=== PATIENT | male | born 1935 | race Caucasian/White ===

== ENCOUNTER → 2017-10-13 | Outpatient (CLI) | payer MEDICARE, OTHER ==
[2016-04-18 15:36] VITALS: BMI 25.2
[~2017-10-13] MED LIST: ACET-1966 PO; ASCO-182 PO; ASPI-1471 PO; ASPI-757 PO; BENZ100C4 PO; CALC625T57 PO; CEF300 PO; CHOL10005 PO; CHOL400C PO; CLON-298 PO; CYAN500T54 PO; DOCU-416 PO; FLUT9.9S; LACT PO; LEVO-85 PO; MAGN250T34 PO; MECO10002; MULT1CAP59 PO; OMEP-137 PO; POTA-53 PO; POTA2TAB29 PO; [UNRECOGNIZED DRUG - CODE] PO
--- NOTE | 2017-10-13 10:16 | RADIOLOGY IMAGING REPORT ---
[place] [facility] [place] Marco Awad : 1935 MR: [id number] V: [id number] EXAM DATE: ORDERING PHYSICIAN: [facility] TECHNOLOGIST: Location: [facility] Patient: Marco Awad : 1935 Visit/Account:[id number] Date of Sevice: 10/13/2017 Exam type: CHEST PA AND LAT History: Follow-up right upper lobe nodular infiltrate Comparison: CT chest January 06, 2017 Findings: There are subtle vague groundglass opacities projecting over the right upper lung field. These may r epresent the opacities seen on the prior CT scan although are better depicted by that imaging modalit y. There is no evidence of pleural effusions or pulmonary edema. The cardiac silhouette is normal i n size. There are surgical clips in the right axilla IMPRESSION: 1. Vague groundglass opacities project over the right upper lung field which may represent the passa ge is identified on the prior CT. These were more accurately depicted on the prior CT scan and follo w-up chest CT may be helpful for further evaluation Report Dictated By: Sayda Jones MD at 10/13/2017 10:08 AM Report E-Signed By: Sayda Jones MD at 10/13/2017 10:12 AM WSN:[id number]
== END ==
LOC: RAD 09:16
PROVIDERS: ATTEND Internal Medicine
DX: R91.8 Other nonspecific abnormal finding of lung field (principal)
CPT/HCPCS: 71046

== ENCOUNTER 2018-02-06 02:47 | Outpatient (RCR) | payer MEDICARE, OTHER ==
[2016-04-18 15:36] VITALS: BMI 25.2
[2018-02-06] MEDS ORDERED: IOPAMIDOL 76% 75 ML INFUS BTL 75 ML ONE (10:14)
[2018-02-06] MEDS ORDERED: NS 0.9% 150 ML BAG 150 ML ONE (10:15)
--- NOTE | 2018-02-06 11:00 | RADIOLOGY IMAGING REPORT ---
FACILITY: [facility] [place] PATIENT NAME: Marco Awad : 1935 MR: [id number] V: [id number] EXAM DATE: ORDERING PHYSICIAN: HORACIO GERMAN TECHNOLOGIST: [place] [facility] [place] Marco Awad : 1935 Visit/Account:[id number] Date of Sevice: 02/06/2018 CHEST/AB/PELV W/CONTRAST HISTORY: Screening exam, history of melanoma. TECHNIQUE: CT thoracic inlet to the pubic symphysis was obtained with IV contrast.. One of the following dose optimization techniques was utilized in the performance of this exam: autom ated exposure control; adjustment of the mA and/or kV according to the patient's size; or use of an i terative reconstruction technique. Specific details can be referenced in the facility's radiology CT exam operational policy. CONTRAST: 75 cc Isovue-370 IV. COMPARISON: CT chest 01/06/2017. FINDINGS: CHEST: Lungs/pleura: The lungs are clear. Mediastinum: Negative. Bones/soft tissues: There are surgical clips in the right axilla. Left axilla is normal. ABDOMEN/PELVIS: Liver/gallbladder: The liver demonstrates homogeneous enhancement without evidence of mass. The gal lbladder is normal. Spleen: Normal. Adrenals: Normal. Pancreas: Normal enhancement without evidence of mass. Kidneys/: Both kidneys demonstrate normal enhancement without evidence of hydronephrosis or mass. The urinary bladder is normal. Pelvis/Bladder: Urinary bladder is normal. GI: There are diverticular changes I sigmoid colon. The small bowel and stomach are normal. Vessels/nodes: Negative. Bones/soft tissues: There are no lytic or blastic bone lesions. IMPRESSION: 1. No evidence of metastasis in the chest abdomen or pelvis. 2. Postoperative changes with surgical clips in the right axilla. Report Dictated By: Slade Noble at 02/06/2018 10:51 AM Report E-Signed By: Slade Noble at 02/06/2018 10:56 AM WSN:[id number]
[2018-02-10] MEDS ORDERED: GADOBENATE 529MG/1ML 15ML VIAL IVP ONE (11:00)
--- NOTE | 2018-02-10 13:25 | RADIOLOGY IMAGING REPORT ---
FACILITY: [facility] - [place] PATIENT NAME: Marco Awad : 1935 MR: [id number] V: [id number] EXAM DATE: ORDERING PHYSICIAN: HORACIO GERMAN TECHNOLOGIST: Location: [facility] Patient: Marco Awad : 1935 Visit/Account:[id number] Date of Sevice: 02/10/2018 BRAIN W W/O CONTRAST Provided history: Melanoma, pituitary adenoma Additional pertinent history: none TECHNIQUE: Multiplanar multisequence brain MRI was performed without and with intravenous contrast Contrast dose: 15 mL of MultiHance. Additional focused sequences: none COMPARISON STUDIES: No relevant priors FINDINGS: Brain volume: There is prominence of the ventricles, sulci and fissures that is appropriate for age. Acute ischemia: None Chronic cortical and ganglionic ischemia: none significant Hemorrhage: None Masses / edema: There are no intra-axial masses to suggest metastatic disease. Correlating with the history given, there is enlargement of the pituitary. Detailed assessment was n ot performed. Based upon the screening study, maximal height is 9 mm and transverse diameter 20 mm i n AP diameter 11 mm. On the pregadolinium T1 series, the mass is isointense to jauregui matter, typicall y seen from pituitary adenoma. It demonstrates mildly heterogenous enhancement. The stalk appears t o displace posteriorly, difficult to define on the coronal series. No obvious cavernous sinus invasi on though it is encroaching upon the right cavernous sinus. There is visible CSF between the upper m argin of the mass and the chiasm. There is no growth through the floor of the sella. White matter lesions : Normal Vessels: Normal Extra-axial: None Calvarium / scalp: Negative Skull base / infratemporal fossa: negative Visualized sinuses / orbits / upper neck: Moderate smooth mucosal thickening right maxillary sinus a nd mild thickening of the ethmoid air cells bilaterally. IMPRESSION: 1. No evidence of intra-axial mass, hemorrhage or acute ischemia. 2. Pituitary enlargement, correlating with history given. Please note that a detailed study was not performed on the pituitary. The signal pattern would be consistent with an adenoma. 3. Mild right maxillary sinus inflammatory disease. Report Dictated By: Gabriel Covarrubias MD at 02/10/2018 1:13 PM Report E-Signed By: aGbriel Covarrubias MD at 02/10/2018 1:20 PM WSN:[id number]
== END 2018-02-10 18:00 | disposition home or self-care (01) ==
LOC: CT 02:47 → EDSTATUS 02:47 → CT 02-10 18:00
PROVIDERS: ATTEND Internal Medicine Medical Oncology
DX: C43.9 Malignant melanoma of skin, unspecified (principal); D35.2 Benign neoplasm of pituitary gland
CPT/HCPCS: 36415; 70553; 71260; 74177; 82565; A9577; Q9967

== ENCOUNTER 2018-06-08 01:33 | Inpatient (IN) | payer MEDICARE, OTHER ==
[~2018-06-08] VITALS: Ht 172.7 cm; Wt 76.7 kg
[~2018-06-08 01:33] MED LIST changes: -CLON-298 PO; +CLON-331 PO
[2018-06-08] MEDS ORDERED: LR IV ONE (01:45)
[2018-06-08] MEDS ORDERED: RANI-366 PO (01:54)
--- NOTE | 2018-06-08 02:01 | EKG ---
FACILITY: [facility] - [place] PATIENT NAME: ROSITA SHETTY : [id number] MR: [id number] V: [id number] EXAM DATE: ORDERING PHYSICIAN: SANIYA TRINIDAD TECHNOLOGIST: HÉCTOR Test Reason : SOB Blood Pressure : / mmHG Vent. Rate : 108 BPM Atrial Rate : 108 BPM P-R Int : 188 ms QRS Dur : 068 ms QT Int : 306 ms P-R-T Axes : 057 020 045 degrees QTc Int : 410 ms Sinus tachycardia Nonspecific ST and T wave abnormality Abnormal ECG When compared with ECG of 18-APR-2016 03:47, Previous ECG has much artifact, making comparison difficult Confirmed by DEUCE LEHMAN ([id number]) on 06/08/2018 3:30:42 AM Referred By: IVVI Confirmed By:DEUCE LEHMAN
[2018-06-08 02:11] LABS: PLATELET COUNT, AUTOMATED 196 K/uL (150-450)
[2018-06-08 02:16] LABS: INR 1.02
--- NOTE | 2018-06-08 02:16 | ER Report ---
History and Physical Time Seen By MD: 01:40 Hx. of Stated Complaint: Patient states he aspirated on acid reflux at 2300 tonight, also complains of persistent shivering. states that this has happened before in the past with similar symptoms HPI/ROS CHIEF COMPLAINT: cough, aspiration, shivering HISTORY OF PRESENT ILLNESS: Pt reportedly aspirated due to reflux at 11pm; shortly after, he began coughing and developed shirvering. Cough has been nonproductive. Patient now has uncontrollable shivering and chills. States he has had this previously; last over 1 year ago. Pt denies n/v/d/c/chest pain. REVIEW OF SYSTEMS: Constitutional: chills as above Eyes: No discharge. ENT: No sore throat. Cardiovascular: No chest pain, no palpitations. Respiratory: cough, non productive Gastrointestinal: No abdominal pain, no vomiting. Genitourinary: No hematuria. Musculoskeletal: No back pain. Skin: No rashes. Neurological: No headache. Remainder of the 14 system rev: Yes Allergies: Coded Allergies: No Known Drug Allergies (Unverified , 06/08/18) Home Meds Active Scripts Lactobacillus Acidophilus (ACIDOPHILUS CAPLET) 1 Each Tab, 1 EACH PO BIDBS, #0 TAB continue for one week after stopping the antibiotic Prov:DEUCE LEHMAN MD 04/20/16 Clonazepam (CLONAZEPAM) 0.5 Mg Tablet, 1 TAB PO QHS PRN for insomnia, #0 TAB 1 Refill Prov:DEUCE LEHMAN MD 04/20/16 Omeprazole (OMEPRAZOLE) 20 Mg Tablet.dr, 1 TAB PO BID, #180 TAB 3 Refills TAKE ONE TABLET BY MOUTH TWICE A DAY Prov:DIANE PONCE MD 09/28/14 Reported Medications Ranitidine Hcl (ZANTAC) 150 Mg Tablet, 75 MG PO HS, TAB 06/08/18 Cyanocobalamin (Vitamin B-12) (B-12) 500 Mcg Tablet, 500 MCG PO QPM, TAB 04/18/16 Acetaminophen (TYLENOL) 325 Mg Tablet, 650 MG PO PRN, TAB 04/18/16 Aspirin (ASPIRIN) 325 Mg Tablet, 325 MG PO QAM, TAB 04/18/16 Magnesium Oxide (MAGNESIUM) 250 Mg Tablet, 250 MG PO QPM 04/18/16 Docusate Sodium (COLACE) 100 Mg Capsule, PO QPM, CAPSULE 04/18/16 Calcium Polycarbophil (FIBERCON) 625 Mg Tablet, PO QAM 04/18/16 Potassium Gluconate (POTASSIUM GLUCONATE) 500 Mg Tablet, 1 TAB PO QHS 04/18/16 Ascorbic Acid (VITAMIN C) 500 Mg Tablet, 500 MG PO QAM, TAB 04/18/16 Multivitamin (MULTIVITAMINS) 1 Each Capsule, 1 EACH PO DAILY, CAPSULE 09/27/14 Discontinued Reported Medications Cholecalciferol (Vitamin D3) (VITAMIN D3) 400 Unit Capsule, 400 UNIT PO QPM, CAPSULE 04/18/16 Discontinued Scripts Cefdinir 300 Mg Cap (OMNICEF 300 MG CAP (OR EQUIV)) 300 Mg Capsule, 300 MG PO BID, #16 CAPSULE Start in the morning of 04/21 Prov:DEUCE LEHMAN MD 04/20/16 Reviewed Nurses Notes: Yes Old Medical Records Reviewed: Yes Hx Smoking: Yes Smoking Status: Former Smoker Exposure to Second Hand Smoke?: No Hx Substance Use Disorder: No Hx Alcohol Use: Yes (1 DAILY) Constitutional Vital Sign - Last 24 Hours 06/08/18 06/08/18 06/08/18 06/08/18 01:35 01:37 01:37 01:48 Temp 98.1 Pulse 122 107 Resp 23 24 B/P (MAP) 150/100 150/100 (117) Pulse Ox 84 93 O2 Delivery Nasal Cannula O2 Flow Rate 4.5 06/08/18 06/08/18 06/08/18 06/08/18 02:03 02:13 02:18 02:23 Pulse 107 113 105 Resp 16 29 13 B/P (MAP) 125/80 (95) Pulse Ox 95 93 92 06/08/18 06/08/18 06/08/18 06/08/18 02:53 03:03 03:08 03:13 Pulse 114 110 112 114 Resp 16 23 20 18 Pulse Ox 91 90 92 06/08/18 06/08/18 03:15 03:23 Pulse 108 Resp 16 B/P (MAP) 101/65 (77) Pulse Ox 92 Physical Exam General Appearance: [The patient is alert, has no immediate need for airway protection and no signs of toxicity.] He is shivering uncontrollably Pupils equal and round no pallor or injection. ENT, Mouth: MM dry Respiratory: occ basilar ronchi R > L Cardiovascular: tachycardia Gastrointestinal: Abdomen is soft and non tender, no masses, bowel sounds yolette l. Neurological: alert, oriented, no focal deficits Skin: skin cool, no rashes, dry Musculoskeletal: Neck is supple non tender. Extremities are nontender, nonswollen and have full range of motion. DIFFERENTIAL DIAGNOSIS: After history and physical exam differential diagnosis was considered for sepsis, aspiration pneumonia, acs, or other emergent etiology Medical Decision Making Data Points Result Diagram: 06/08/18 0150 06/08/18 0150 Laboratory Hematology Test 06/08/18 01:50 06/08/18 02:28 Red Blood Count 4.18 M/uL (4.00-5.60) Mean Corpuscular Volume 101.4 fL (80.0-96.0) Mean Corpuscular Hemoglobin 34.9 pg (26.0-33.0) Mean Corpuscular Hemoglobin Concent 34.4 g/dL (32.0-36.0) Red Cell Distribution Width 13.8 % (11.5-14.5) Mean Platelet Volume 7.0 fL (7.2-11.1) Neutrophils (%) (Auto) 57.2 % (39.4-72.5) Lymphocytes (%) (Auto) 29.0 % (17.6-49.6) Monocytes (%) (Auto) 8.2 % (4.1-12.4) Eosinophils (%) (Auto) 5.3 % (0.4-6.7) Basophils (%) (Auto) 0.3 % (0.3-1.4) Nucleated RBC Relative Count (auto) 0.1 /100WBC Neutrophils # (Auto) 2.8 K/uL (2.0-7.4) Lymphocytes # (Auto) 1.4 K/uL (1.3-3.6) Monocytes # (Auto) 0.4 K/uL (0.3-1.0) Eosinophils # (Auto) 0.3 K/uL (0.0-0.5) Basophils # (Auto) 0.0 K/uL (0.0-0.1) Nucleated RBC Absolute Count (auto) 0.01 K/uL Prothrombin Time 13.4 seconds (12.0-14.4) Prothromb Time International Ratio 1.02 Activated Partial Thromboplast Time 27 seconds (23-35) Sodium Level 137 mmol/L (137-145) Potassium Level 4.1 mmol/L (3.5-5.0) Chloride Level 101 mmol/L (98-107) Carbon Dioxide Level 23 mmol/L (22-30) Blood Urea Nitrogen 29 mg/dl (9-21) Creatinine 1.40 mg/dl (0.66-1.25) Glomerular Filtration Rate Calc 48.8 Random Glucose 132 mg/dl (75-110) Calcium Level 8.9 mg/dl (8.4-10.2) Total Bilirubin 0.7 mg/dl (0.2-1.3) Aspartate Amino Transf (AST/SGOT) 28 U/L (0-35) Alanine Aminotransferase (ALT/SGPT) 26 U/L (0-56) Alkaline Phosphatase 82 U/L (0-126) Troponin I < 0.012 ng/ml Total Protein 7.4 g/dl (6.3-8.2) Albumin 4.0 g/dl (3.5-5.0) Lipase 57 U/L (23-300) Urine Color Yellow Urine Clarity Clear Urine pH 5.0 pH (4.8-9.5) Urine Specific [place] 1.017 Urine Protein Negative mg/dL (NEGATIVE) Urine Glucose (UA) Negative mg/dL (NEGATIVE) Urine Ketones Negative mg/dL (NEGATIVE) Urine Blood Negative (NEGATIVE) Urine Nitrite Negative (NEGATIVE) Urine Bilirubin Negative (NEGATIVE) Urine Urobilinogen Negative mg/dL (0.2-1.9) Urine Leukocyte Esterase Negative (NEGATIVE) Urine RBC 1 /HPF (0-2/HPF) Urine WBC 1 /HPF (0-5/HPF) Urine Squamous Epithelial Cells None /LPF (</=FEW) Urine Bacteria Few /HPF (NONE-FEW) Urine Hyaline Casts Few /LPF (NONE-FEW) Urine Mucus Few /HPF (NONE-FEW) Chemistry Test 06/08/18 01:50 06/08/18 02:28 White Blood Count 4.9 k/uL (4.5-11.0) Red Blood Count 4.18 M/uL (4.00-5.60) Hemoglobin 14.6 g/dL (14.0-18.0) Hematocrit 42.4 % (42.0-52.0) Mean Corpuscular Volume 101.4 fL (80.0-96.0) Mean Corpuscular Hemoglobin 34.9 pg (26.0-33.0) Mean Corpuscular Hemoglobin Concent 34.4 g/dL (32.0-36.0) Red Cell Distribution Width 13.8 % (11.5-14.5) Platelet Count 196 K/uL (150-450) Mean Platelet Volume 7.0 fL (7.2-11.1) Neutrophils (%) (Auto) 57.2 % (39.4-72.5) Lymphocytes (%) (Auto) 29.0 % (17.6-49.6) Monocytes (%) (Auto) 8.2 % (4.1-12.4) Eosinophils (%) (Auto) 5.3 % (0.4-6.7) Basophils (%) (Auto) 0.3 % (0.3-1.4) Nucleated RBC Relative Count (auto) 0.1 /100WBC Neutrophils # (Auto) 2.8 K/uL (2.0-7.4) Lymphocytes # (Auto) 1.4 K/uL (1.3-3.6) Monocytes # (Auto) 0.4 K/uL (0.3-1.0) Eosinophils # (Auto) 0.3 K/uL (0.0-0.5) Basophils # (Auto) 0.0 K/uL (0.0-0.1) Nucleated RBC Absolute Count (auto) 0.01 K/uL Prothrombin Time 13.4 seconds (12.0-14.4) Prothromb Time International Ratio 1.02 Activated Partial Thromboplast Time 27 seconds (23-35) Glomerular Filtration Rate Calc 48.8 Calcium Level 8.9 mg/dl (8.4-10.2) Total Bilirubin 0.7 mg/dl (0.2-1.3) Aspartate Amino Transf (AST/SGOT) 28 U/L (0-35) Alanine Aminotransferase (ALT/SGPT) 26 U/L (0-56) Alkaline Phosphatase 82 U/L (0-126) Troponin I < 0.012 ng/ml Total Protein 7.4 g/dl (6.3-8.2) Albumin 4.0 g/dl (3.5-5.0) Lipase 57 U/L (23-300) Urine Color Yellow Urine Clarity Clear Urine pH 5.0 pH (4.8-9.5) Urine Specific [place] 1.017 Urine Protein Negative mg/dL (NEGATIVE) Urine Glucose (UA) Negative mg/dL (NEGATIVE) Urine Ketones Negative mg/dL (NEGATIVE) Urine Blood Negative (NEGATIVE) Urine Nitrite Negative (NEGATIVE) Urine Bilirubin Negative (NEGATIVE) Urine Urobilinogen Negative mg/dL (0.2-1.9) Urine Leukocyte Esterase Negative (NEGATIVE) Urine RBC 1 /HPF (0-2/HPF) Urine WBC 1 /HPF (0-5/HPF) Urine Squamous Epithelial Cells None /LPF (</=FEW) Urine Bacteria Few /HPF (NONE-FEW) Urine Hyaline Casts Few /LPF (NONE-FEW) Urine Mucus Few /HPF (NONE-FEW) Coagulation Test 06/08/18 01:50 Prothrombin Time 13.4 seconds Prothromb Time International Ratio 1.02 Activated Partial Thromboplast Time 27 seconds Urinalysis Test 06/08/18 02:28 Urine Color Yellow Urine Clarity Clear Urine pH 5.0 pH (4.8-9.5) Urine Specific [place] 1.017 Urine Protein Negative mg/dL (NEGATIVE) Urine Glucose (UA) Negative mg/dL (NEGATIVE) Urine Ketones Negative mg/dL (NEGATIVE) Urine Blood Negative (NEGATIVE) Urine Nitrite Negative (NEGATIVE) Urine Bilirubin Negative (NEGATIVE) Urine Urobilinogen Negative mg/dL (0.2-1.9) Urine Leukocyte Esterase Negative (NEGATIVE) Urine RBC 1 /HPF (0-2/HPF) Urine WBC 1 /HPF (0-5/HPF) Urine Squamous Epithelial Cells None /LPF (</=FEW) Urine Bacteria Few /HPF (NONE-FEW) Urine Hyaline Casts Few /LPF (NONE-FEW) Urine Mucus Few /HPF (NONE-FEW) EKG/Imaging EKG Interpretation 12 lead EKG: Rhythm: sinus tachycardia [employer]: normal QRS: normal ST segments: borderline st depression II, V4-6 [ ] Monitor Interpretation: Sinus Tachycardia Imaging X-ray: chest was obtained. I viewed the images myself on the PACS system. My interpretation of the images is: r middle lobe pneumonia. The radiologist interpretation had no clinically significant variation from this interpretation. ED Course/Re-evaluation ED Course Pt presents tachycardic, hypoxic, with rigors; improves with ED resuscitation; cxr shows RML pneumonia. I initiated moxifloxacin; pt improves and is hd stable. Will admit for sepsis management. Decision to Disposition Date: Jun 08, 2018 Decision to Disposition Time: 02:49 Depart Departure Latest Vital Signs Vital Signs Date Time Temp Pulse Resp B/P (MAP) Pulse Ox O2 Delivery O2 Flow Rate FiO2 06/08/18 03:23 108 16 92 06/08/18 03:15 101/65 (77) 06/08/18 01:37 98.1 Nasal Cannula 06/08/18 01:35 4.5 Impression: Primary Impression: Aspiration pneumonia Condition: Improved Disposition: Admitted from ER Referrals: SOM BERGERON DO (PCP) Problem Qualifiers Primary Impression: Aspiration pneumonia Aspiration pneumonia type: unspecified Laterality: right Lung location: middle lobe of lung Qualified Codes: J69.0 - Pneumonitis due to inhalation of food and vomit SANIYA TRINIDAD MD Jun 08, 2018 02:16
[2018-06-08] MEDS ORDERED: MOXIFLOX(*) 400MG/250ML PREMX 250 ML IVPB SCH ×2 (02:20→09:00)
--- NOTE | 2018-06-08 03:20 | RADIOLOGY IMAGING REPORT ---
[place] [facility] [place] Marco Awad : 1935 MR: [id number] V: [id number] EXAM DATE: ORDERING PHYSICIAN: SANIYA TRINIDAD TECHNOLOGIST: Location: [facility] [place] Patient: Marco Awad : 1935 Visit/Account:[id number] Date of Sevice: 06/08/2018 CHEST SINGLE AP 06/08/2018 02:19 hours. HISTORY: Shortness of breath. COMPARISON: CT chest, abdomen, and pelvis 02/06/2018. Most recent chest x-ray 10/03/2017 and studies da ting to 12/16/2006. TECHNIQUE: Portable AP view of the chest. FINDINGS: Tubes/lines/hardware: There are surgical clips at the right axilla. Pulmonary: There are new infiltrates at the lateral right mid to upper lung zone and at the right low er lung zone. Left lung is clear. There is no pneumothorax or pleural effusion. Cardiomediastinal: Cardiac and mediastinal silhouettes are within normal limits. Bones/soft tissues: No acute osseous abnormality. There are a mild rightward curvature of the upper t horacic spine and a leftward curvature of the lower thoracic spine. There is mild degenerative change of the spine. The visible abdomen is normal. IMPRESSION: 1. Right infiltrates, likely pneumonia. Follow-up chest x-ray to ensure clearing is recommended. Report Dictated By: Asha Larkin at 06/08/2018 2:57 AM Report E-Signed By: Asha Larkin at 06/08/2018 3:00 AM WSN:[id number]
[2018-06-08] MEDS ORDERED: INFLUENZA VIRUS VAC 0.5ML SYR IM ONLY ONE (03:30)
[2018-06-08] MEDS ORDERED: ALBUTEROL 2.5 MG/3 ML NEB NEB PRN (03:30)
[2018-06-08] MEDS ORDERED: NS(*) 0.9% 1000 ML BAG 1,000 ML IV PRN (03:30)
--- NOTE | 2018-06-08 03:53 | History & Physical ---
History of Present Illness History of Present Illness 82yo male with a h/o aspiration pneumonia who came to the ER with shaking chills after an aspiration event. For the last week, he has had a cough and sneezing. He felt like it was improving. No f/c. Some sputum production with the cough. At 11pm while in bed, he refluxed up a bunch of food into his mouth. He went to the bathroom and spit it out. However, he had a lot of coughing afterwards. A couple hours later he developed shaking chills and came to the ER. He also noted wheezing, increased WOB and some nausea. No cp, dysuria, or diarrhea. He has had 5 events like this. Each requiring antibiotics. He has been seen by a Home Health Clinician at [facility] in [place]. In the ER, they gave sepsis protocol LR and moxifloxacin. History Problems: (1) Melanoma Status: Acute (2) Erectile dysfunction Status: Acute (3) GERD (gastroesophageal reflux disease) Status: Chronic (4) Chronic renal failure Status: Chronic (5) Sleep related leg cramps Status: Chronic Home Meds Active Scripts Lactobacillus Acidophilus (ACIDOPHILUS CAPLET) 1 Each Tab, 1 EACH PO BIDBS, #0 TAB continue for one week after stopping the antibiotic Prov:DEUCE LEHMAN MD 04/20/16 Clonazepam (CLONAZEPAM) 0.5 Mg Tablet, 1 TAB PO QHS PRN for insomnia, #0 TAB 1 Refill Prov:DEUCE LEHMAN MD 04/20/16 Omeprazole (OMEPRAZOLE) 20 Mg Tablet.dr, 1 TAB PO BID, #180 TAB 3 Refills TAKE ONE TABLET BY MOUTH TWICE A DAY Prov:DIANE PONCE MD 09/28/14 Reported Medications Ranitidine Hcl (ZANTAC) 150 Mg Tablet, 75 MG PO HS, TAB 06/08/18 Cyanocobalamin (Vitamin B-12) (B-12) 500 Mcg Tablet, 500 MCG PO QAM, TAB 04/18/16 Acetaminophen (TYLENOL) 325 Mg Tablet, 650 MG PO PRN, TAB 04/18/16 Aspirin (ASPIRIN) 325 Mg Tablet, 325 MG PO QAM, TAB 04/18/16 Magnesium Oxide (MAGNESIUM) 250 Mg Tablet, 250 MG PO QPM 04/18/16 Docusate Sodium (COLACE) 100 Mg Capsule, PO QPM, CAPSULE 04/18/16 Calcium Polycarbophil (FIBERCON) 625 Mg Tablet, PO QAM 04/18/16 Potassium Gluconate (POTASSIUM GLUCONATE) 500 Mg Tablet, 1 TAB PO QHS 04/18/16 Ascorbic Acid (VITAMIN C) 500 Mg Tablet, 500 MG PO QAM, TAB 04/18/16 Multivitamin (MULTIVITAMINS) 1 Each Capsule, 1 EACH PO DAILY, CAPSULE 09/27/14 Discontinued Reported Medications Cholecalciferol (Vitamin D3) (VITAMIN D3) 400 Unit Capsule, 400 UNIT PO QPM, CAPSULE 04/18/16 Discontinued Scripts Cefdinir 300 Mg Cap (OMNICEF 300 MG CAP (OR EQUIV)) 300 Mg Capsule, 300 MG PO BID, #16 CAPSULE Start in the morning of 04/21 Prov:DEUCE LEHMAN MD 04/20/16 Allergies: Coded Allergies: No Known Drug Allergies (Unverified , 06/08/18) Patient History: Diabetes mellitus (DM) CHILD, Age:unk FH: CABG (coronary artery bypass surgery) FATHER, , Age:87 FH: CHF (congestive heart failure) MOTHER, , Age:91 Other Social/Family Hx 1 glass a wine per evening. He smoked for 10 years, but quit 50 years ago. He is . Hx Smoking: Yes Smoking Status: Former Smoker Exposure to Second Hand Smoke?: No Hx Alcohol Use: Yes (1 DAILY) Hx Substance Use Disorder: No Review of Systems All Systems Reviewed/Normal: Yes, Except as Noted Exam Vital Signs Vital Signs Date Time Temp Pulse Resp B/P (MAP) Pulse Ox O2 Delivery O2 Flow Rate FiO2 06/08/18 02:53 114 16 06/08/18 02:23 92 06/08/18 02:13 125/80 (95) 06/08/18 01:37 98.1 Nasal Cannula 06/08/18 01:35 4.5 General Appearance: Alert, Awake, Other (Mild to moderate tachypnea) Neuro: No Gross deficits Eyes: PERRLA ENT: Moist Mucous Membranes Cardiovascular: No JVD, Other (Tachy, reg, no m/r/g) Respiratory: Other (Diffuse exp rhonchi, insp crackles on right base) GI: Abd Soft and Non-Tender Extremities: No Edema Integumentary: No Jaundice, No Cyanosis Medical Decision Making Data Points Result Diagram: 06/08/1814906/08/18149 Item Value Date Time Troponin I < 0.012 ng/ml 06/08/18149 Lactate 2.1 mmol/L 06/08/18149 Total Bilirubin 0.7 mg/dl 06/08/18149 Aspartate Amino Transf (AST/SGOT) 28 U/L 06/08/18149 Alanine Aminotransferase (ALT/SGPT) 26 U/L 06/08/18149 Alkaline Phosphatase 82 U/L 06/08/18149 Creatinine 1.30 mg/dl H 02/06/18 0910 Creatinine 1.40 mg/dl H 06/08/18149 Neutrophils (%) (Auto) 57.2 % 06/08/18149 Lymphocytes (%) (Auto) 29.0 % 06/08/18149 Monocytes (%) (Auto) 8.2 % 06/08/18149 Urine RBC 1 /HPF 06/08/18227 Urine WBC 1 /HPF 06/08/18227 Urine Squamous Epithelial Cells None /LPF 06/08/18227 Urine Bacteria Few /HPF 06/08/18227 Prothromb Time International Ratio 1.02 06/08/18149 EKG / Imaging EKG Interpretation Vent. Rate : 108 BPM Atrial Rate : 108 BPM P-R Int : 188 ms QRS Dur : 068 ms QT Int : 306 ms P-R-T Axes : 057 020 045 degrees QTc Int : 410 ms Sinus tachycardia Nonspecific ST and T wave abnormality Abnormal ECG When compared with ECG of 18-APR-2016 03:47, Previous ECG has much artifact, making comparison difficult Confirmed by DEUCE LEHMAN ([id number]) on 06/08/2018 3:30:42 AM Imaging CXR - 1. Right infiltrates, likely pneumonia. Follow-up chest x-ray to ensure clearing is recommended. Assessment and Plan Problems: (1) Aspiration pneumonia Status: Acute Assessment & Plan: He presented after aspirating refluxed stomach contents a couple hours before going to the ER. He had shaking chills, tachypnea, hypoxia and tachycardia. He has done this a couple other times and is followed by a Home Health Clinician. He was fluid resuscitated in the ER by the sepsis protocol and given Moxifloxacin. Will change to Unasyn, schedule DuoNebs, prn albuterol, and check a CXR tomorrow. (2) GERD (gastroesophageal reflux disease) Status: Chronic Assessment & Plan: He is chronically on omeprazole and ranitidine. Will change to Protonix and continue ranitidine. (3) CKD (chronic kidney disease) stage 3, GFR 30-59 ml/min Status: Chronic Assessment & Plan: Baseline creatinine appears to be 1.3. He is 1.4, currently. (4) Sleep related leg cramps Status: Chronic Assessment & Plan: Continue chronic clonazepam. Copies to: SOM BERGERON DO ; Venous Thromboembolism Antithrombotics Is Pt On Any Antithrombotics?: No Exam Sepsis Risk: No Definite Risk Problem Qualifiers (1) Aspiration pneumonia: Aspiration pneumonia type: unspecified Laterality: right Lung location: mid dle lobe of lung Qualified Codes: J69.0 - Pneumonitis due to inhalation of fo od and vomit DEUCE LEHMAN MD Jun 08, 2018 03:53
[2018-06-08 03:57] VITALS: BP 93/57
[2018-06-08] MEDS: NS(*) 0.9% 1000 ML BAG 1,000 ML IV PRN ×2 (04:00→04:27)
[2018-06-08 04:21] VITALS: BP 102/61
[2018-06-08] MEDS: AMPICILLIN/SULBACT (*) 3 GM VL 3 GM in NS(*) 0.9% 100 ML BAG 100 ML IVPB SCH ×4 (04:27→22:12)
[2018-06-08] MEDS: ALBUTEROL/IPRATROPIUM 3 ML NEB NEB SCH ×3 (05:20→16:54)
[2018-06-08 08:31] VITALS: BP 93/52
[2018-06-08] MEDS: LACTOBACILLUS ACIDOPHILUS TAB PO SCH ×2 (08:45→16:50)
[2018-06-08 08:48] VITALS: BP 103/52
[2018-06-08] MEDS: ENOXAPARIN 40 MG/0.4ML SYR SC SCH (08:48)
[2018-06-08] MEDS ORDERED: PANTOPRAZOLE SOD 40 MG TABEC PO SCH (09:00)
[2018-06-08 09:21] VITALS: Ht 172.7 cm; Wt 76.7 kg
[2018-06-08] MEDS: ACETAMINOPHEN 500 MG TAB PO PRN ×2 (11:30→22:11)
[2018-06-08] MEDS: PANTOPRAZOLE SOD 40 MG TABEC PO SCH (16:50)
[2018-06-08 18:48] VITALS: BP 105/53
[2018-06-08] MEDS: RANITIDINE HCL 150 MG TAB PO SCH (21:25)
[2018-06-08] MEDS: clonazePAM 0.5 MG TAB PO PRN (22:12)
[2018-06-08 22:16] VITALS: BP 91/55
[2018-06-09 03:59] VITALS: BP 86/52
[2018-06-09] MEDS: AMPICILLIN/SULBACT (*) 3 GM VL 3 GM in NS(*) 0.9% 100 ML BAG 100 ML IVPB SCH ×4 (04:04→22:13)
[2018-06-09 04:42] VITALS: BP 100/58
[2018-06-09 05:33] LABS: PLATELET COUNT, AUTOMATED 125 K/uL (150-450)
[2018-06-09] MEDS: ALBUTEROL/IPRATROPIUM 3 ML NEB NEB SCH ×3 (05:40→16:50)
--- NOTE | 2018-06-09 07:10 | RADIOLOGY IMAGING REPORT ---
FACILITY: [facility] PATIENT NAME: Marco Awad : 1935 MR: [id number] V: [id number] EXAM DATE: ORDERING PHYSICIAN: DEUCE LEHMAN TECHNOLOGIST: Location: [facility] Patient: Marco Awad : 1935 Visit/Account:[id number] Date of Sevice: 06/09/2018 PORTABLE CHEST: Indication: Follow-up evaluation of pneumonia. Technique: A single frontal film was obtained. Comparison: 06/08/2018 Skeletal and soft tissue structures: Intact and unchanged. Heart and mediastinum: Within normal limits. Lung martinez: Well-expanded. There are persistent ill-defined opacities in the right upper lobe and me dial right lung base, compatible with acute pneumonia. No new focal opacities are identified. There i s no evidence of vascular congestion. Pleural spaces: No evidence of effusion or thickening. Impression: Persistent opacities in the right lung, compatible with acute pneumonia. No significant c hange. Report Dictated By: Gabriel Poole MD at 06/09/2018 7:05 AM Report E-Signed By: Gabriel Poole MD at 06/09/2018 7:07 AM WSN:[id number]
[2018-06-09 07:22] VITALS: BP 103/53
[2018-06-09] MEDS: LACTOBACILLUS ACIDOPHILUS TAB PO SCH ×2 (07:46→16:29)
--- NOTE | 2018-06-09 07:47 | Hospitalist Progress Note ---
Subjective Progress Notes Subjective He reports feeling improved. Low grade temp last evening. Physical Exam Vital Signs Date Time Temp Pulse Resp B/P (MAP) Pulse Ox O2 Delivery O2 Flow Rate FiO2 06/09/18 07:22 98.5 80 16 103/53 (70) 83 Nasal Cannula 1.5 Intake and Output 06/09/18 07:00 Intake Total 1356 ml Output Total 1560 ml Balance -204 ml Intake Oral 956 ml IV Total 400 ml Output Urine Total 1560 ml # Voids 2 General Appearance: Alert, Awake Cardiovascular: Regular Rate and Rhythm, No Edema Respiratory: Other (rales at right mid-lung and base with some expiratory wheezes bilaterally) GI: Soft and Non-Tender Extremities: Warm, Perfused Result Diagram: 06/09/18 0505 06/09/18 0505 Monitor Interpretation: Sinus Tachycardia Assessment and Plan Problems: (1) Aspiration pneumonia Status: Acute Assessment & Plan: He presented after aspirating refluxed stomach contents a couple hours before going to the ER. He had shaking chills, tachypnea, hypoxia and tachycardia. He has done this a couple other times and has been followed by a [facility]. He was fluid resuscitated in the ER by the sepsis protocol and initially given Moxifloxacin. We have changed to IV Unasyn, scheduled DuoNeb, and prn albuterol. His CXR is unchanged today. He is clinically improved today. Will have Speech/Swallowing therapy see him. (2) GERD (gastroesophageal reflux disease) Status: Chronic Assessment & Plan: He is chronically on omeprazole and ranitidine. He is on Protonix while here (and continue ranitidine). (3) CKD (chronic kidney disease) stage 3, GFR 30-59 ml/min Status: Chronic Assessment & Plan: Baseline creatinine appears to be 1.3. He is 1.3, this AM. (4) Sleep related leg cramps Status: Chronic Assessment & Plan: He has been on chronic clonazepam. Exam Sepsis Risk: No Definite Risk Problem Qualifiers (1) Aspiration pneumonia: Aspiration pneumonia type: unspecified Laterality: right Lung location: middle lobe of lung Qualified Codes: J69.0 - Pneumonitis due to inhalation of food and vomit JESSICA WILKINS MD Jun 09, 2018 07:47
[2018-06-09] MEDS: PANTOPRAZOLE SOD 40 MG TABEC PO SCH ×2 (09:03→16:29)
[2018-06-09] MEDS: ENOXAPARIN 40 MG/0.4ML SYR SC SCH (09:04)
[2018-06-09] MEDS: ACETAMINOPHEN 500 MG TAB PO PRN ×2 (12:40→20:52)
[2018-06-09 16:31] VITALS: BP 117/64
--- NOTE | 2018-06-09 17:03 | SLP BEDSIDE SWALLOW EVALUATION ---
SPEECH THERAPY ASSESSMENT Ordering Provider: Raphael Simms MD Clinician: Christina Nielson MS, CCC-[facility] Type of Assessment: Bedside Dysphagia Evaluation Patient: Marco Awad : [birth year], 82 yrs Evaluation Date: 06/09/2018 BACKGROUND The patient is an 82yo male who presented to the ED on 06/08/18 after experiencing an aspiration event while in bed. He reports refluxing a bunch of food into his mouth followed by coughing with subsequent development of shaking and chills. His most recent meal included cameroonian fries, a cameroonian dip sandwich, and a beer. This is his fifth episode. He is currently seeing a grounds worker at [facility] in [place]. An ST evaluation was ordered to analyze oropharyngeal swallow structure and function and determine safety for PO intake. Primary Medical Diagnosis: Aspiration pneumonia Medical hx: GERD, melanoma, chronic renal failure Pain Scale (0-10): 0 LOC / Participation: Alert, very pleasant and cooperative Follows instructions: yes. Orientation: A&O x4 Functional Communication Deficits impact swallow function/safety, or response to therapy: No DYSPHAGIA Sialorrhea: No Xerostomia: No. Hygiene: WFL Supplemental Oxygen Use: Yes. 1.5 LPM via NC. Respiratory Rate: 18 COPD Dx: No. Pain with Swallow: None. No discomfort. No globus sensation. Oropharyngeal Structure and Function: Oromotor exam was unremarkable w/ adequate structures, strength, speed, coordination, and ROM of all oral musculature. Hyolarygneal elevation and excursion adequate to palpation. No vocal deficits noted. Strong protective cough elicited when prompted. Administered multiple PO trials of thin liquids via straw, thin liquids via cup sip, pureed solids, soft solids, and regular solids. Overall, oral and pharyngeal phases of swallow are WNL. Oral phase was efficient with timely pharyngeal swallow initiation. No evidence of oropharyngeal dysphagia, and no overt signs or symptoms of aspiration noted. Spoke at length with the patient re: case history, and prior interventions, perceived triggers for reflux symptoms. Pt appeared hesitant to eliminate or reduce problematic foods from his diet, but was motivated to determine the cause of repeated aspiration pneumonias. Discussed reflux precautions, reviewed swallow anatomy/physiology, and provided recommendations for referral to GI specialist. ST ASSESSMENT SUMMARY Aspiration Risk: Case history indicates moderate to severely elevated risk for repeated aspiration of reflux. Risk for aspiration during the pharyngeal swallow appears minimal. Speech Therapy Need ST services do not appear warranted at this time. Oropharyngeal swallow appears WNL. Swallowing deficits appear to be esophageal in nature. RECOMMENDATIONS 1. Diet: Regular, thin liquids, avoid problematic foods. 2. Medications: Whole, ok with thin liquids. 3. Compensatory Techniques: take small bites/sips, one bite/sip at a time, alternate bites/sips, stay upright during and for 60 min after PO intake, keep HOB elevated at 30 degrees, avoid PO intake for 3 hours prior to bedtime, attempt to eat smaller, more frequent meals vs 3 large meals each day 4. Supervision with meals/snacks: Not warranted. 5. Follow up with GI specialist for recommended completion of esophagram. 6. Pending results of esophagam and given history of reflux into pharynx, a fiberoptic endoscopic evaluation of swallow (FEES) also may be appropriate. The patient would need to follow up in [place] ([facility]) or [place]. Thank you for this referral. Christina Nielson M.S., [facility] Speech Therapist [*] VINCE
[2018-06-09] MEDS: NS(*) 0.9% 1000 ML BAG 1,000 ML IV PRN (17:49)
[2018-06-09 20:09] VITALS: BP 113/60
[2018-06-09] MEDS: RANITIDINE HCL 150 MG TAB PO SCH (20:51)
[2018-06-09] MEDS: clonazePAM 0.5 MG TAB PO PRN (20:52)
[2018-06-10] MEDS: AMPICILLIN/SULBACT (*) 3 GM VL 3 GM in NS(*) 0.9% 100 ML BAG 100 ML IVPB SCH (04:20)
[2018-06-10 04:25] VITALS: BP 98/61
[2018-06-10] MEDS: ACETAMINOPHEN 500 MG TAB PO PRN ×2 (04:59→14:11)
[2018-06-10] MEDS: ALBUTEROL/IPRATROPIUM 3 ML NEB NEB SCH ×3 (05:30→16:51)
[2018-06-10 06:25] LABS: PLATELET COUNT, AUTOMATED 138 K/uL (150-450)
[2018-06-10 07:35] VITALS: BP 109/63
[2018-06-10] MEDS ORDERED: BARIUM SULFATE 340 GM POWD ONE (08:17)
[2018-06-10] MEDS ORDERED: BARIUM SULFATE 176 GM BTL PO ONE (08:18)
[2018-06-10] MEDS: LACTOBACILLUS ACIDOPHILUS TAB PO SCH ×2 (09:29→16:35)
[2018-06-10] MEDS: ENOXAPARIN 40 MG/0.4ML SYR SC SCH (09:29)
[2018-06-10] MEDS: PANTOPRAZOLE SOD 40 MG TABEC PO SCH ×2 (09:29→16:36)
[2018-06-10 10:57] VITALS: BP 118/72
[2018-06-10] MEDS: guaiFENesin SYR 200MG/10ML UDC PO PRN ×3 (11:29→20:48)
--- NOTE | 2018-06-10 11:55 | Hospitalist Progress Note ---
Subjective Progress Notes Subjective This patient was admitted for aspiration. He had no acute events overnight. Patient Complains of: Cardiovascular: No: Chest Pain Respiratory: Cough Physical Exam Vital Signs Date Time Temp Pulse Resp B/P (MAP) Pulse Ox O2 Delivery O2 Flow Rate FiO2 06/10/18 11:10 74 18 06/10/18 11:04 95 Room Air 06/10/18 10:57 98.1 118/72 (87) 06/10/18 09:45 1.0 Intake and Output 06/10/18 07:00 Intake Total 2430 ml Output Total 1750 ml Balance 680 ml Intake Oral 1080 ml IV Total 1350 ml Output Urine Total 1750 ml # Bowel Movements 1 Cardiovascular: Regular Rate and Rhythm Respiratory: Clear to Auscultation Result Diagram: 06/10/18 0542 06/10/18 0542 Item Value Date Time Blood Culture - Preliminary Resulted 06/08/18 0258 Blood Peripheral Draw NO GROWTH AFTER 2 DAYS, REINCUBATED Urine Culture - Preliminary Resulted 06/08/18 0228 Clean Catch Midstream Ur <10,000 COL/ML GROWTH PRESENT... Blood Culture - Preliminary Resulted 06/08/18 0150 Blood Peripheral Draw NO GROWTH AFTER 2 DAYS, REINCUBATED Monitor Interpretation: Sinus Tachycardia Assessment and Plan Problems: (1) Aspiration pneumonia Status: Acute Assessment & Plan: He presented after aspirating refluxed stomach contents. He had shaking chills, tachypnea, hypoxia and tachycardia. His chest x-ray did show findings consistent with aspiration pneumonia. He was started on treatment with IV Unasyn, but has now been converted to oral Augmentin. His cultures have been negative. (2) GERD (gastroesophageal reflux disease) Status: Chronic Assessment & Plan: He is on chronic treatment with omeprazole and ranitidine. We have also been treating him with Protonix. This appears to be severe and the reason for his aspiration. Speech therapy has ordered an esophagram, which is currently pending. (3) CKD (chronic kidney disease) stage 3, GFR 30-59 ml/min Status: Chronic Assessment & Plan: Baseline creatinine appears to be 1.3. He is 1.3, this AM. (4) Sleep related leg cramps Status: Chronic Assessment & Plan: He has been on chronic clonazepam. Exam Sepsis Risk: No Definite Risk Problem Qualifiers (1) Aspiration pneumonia: Aspiration pneumonia type: unspecified Laterality: right Lung location: middle lobe of lung Qualified Codes: J69.0 - Pneumonitis due to inhalation of food and vomit ROSITA JIANG DO Jun 10, 2018 11:55
--- NOTE | 2018-06-10 12:24 | RADIOLOGY IMAGING REPORT ---
FACILITY: [facility] [place] PATIENT NAME: Marco Awad : 1935 MR: [id number] V: [id number] EXAM DATE: ORDERING PHYSICIAN: JESSICA WILKINS TECHNOLOGIST: Location: [facility] [place] Patient: Marco Awad : 1935 Visit/Account:[id number] Date of Sevice: 06/10/2018 Exam type: ESOPHAGRAM History: possible aspiration/dysphagia Comparison: None. Findings: Double contrast esophagram was performed with thick and thin barium and air contrast. Multiple fluor oscopic images were obtained over the hypopharynx cervical and thoracic esophagus and the GE junction . 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 There is a small hiatal hernia with a large amount of gastroesophageal reflux. Ther e is mild narrowing at the lower esophageal sphincter. The patient did aspirate a small amount of ba rium during the examination which entered the trachea and right main bronchus. This did not elicit a cough response. the fluoroscopy dose area product was 204.84 micro-Patton per meter squared IMPRESSION: 1. Small hiatal hernia with a large amount of gastroesophageal reflux. There is mild narrowing at t he lower esophageal sphincter The patient did aspirate a small amount of barium during the examination which enter the trachea and right main bronchus. This did not elicit a cough response. Modified barium swallow may be helpful f or further evaluation Report Dictated By: Sayda Jones MD at 06/10/2018 12:17 PM Report E-Signed By: Sayda Jones MD at 06/10/2018 12:21 PM [id number]
[2018-06-10 14:05] VITALS: BP 106/58
[2018-06-10] MEDS: AMOX/CLAV 875 MG TAB PO SCH (16:36)
[2018-06-10 20:01] VITALS: BP 112/77
[2018-06-10] MEDS: RANITIDINE HCL 150 MG TAB PO SCH (20:48)
[2018-06-11 00:21] VITALS: BP 108/61
[2018-06-11] MEDS: guaiFENesin SYR 200MG/10ML UDC PO PRN ×2 (00:24→08:10)
[2018-06-11 03:23] VITALS: BP 109/69
[2018-06-11] MEDS: ALBUTEROL/IPRATROPIUM 3 ML NEB NEB SCH ×2 (05:36→10:58)
[2018-06-11] MEDS: AMOX/CLAV 875 MG TAB PO SCH (08:10)
[2018-06-11] MEDS: LACTOBACILLUS ACIDOPHILUS TAB PO SCH (08:10)
[2018-06-11] MEDS: ENOXAPARIN 40 MG/0.4ML SYR SC SCH (08:11)
[2018-06-11] MEDS: PANTOPRAZOLE SOD 40 MG TABEC PO SCH (08:20)
[2018-06-11 08:22] VITALS: BP 111/70
--- NOTE | 2018-06-11 10:35 | Medical Nutrition Therapy ---
Nutrition Anthropometrics Height (Inches): 68.00 Height (Calculated Centimeters: 172.755549 Weight (Pounds): 169 Weight (Calculated Kilograms): 76.657 BMI: 25.7 Michael Nutrition Score: Adequate Michael Nutrition Risk Score: 20 Dietary Referral Nutrition Risk Factors: Nutrition Risk Comment: Physical Findings Physical Appearance: Overweight BMI 25-29 Skin Appearance Skin Appearance: Edema Edema Location Modifier: Edema Location: Type of Edema: Degree of Edema: Gastrointestinal Symptoms GI Symtoms: Appetite Changes Tube Present: Bowel Sounds: Recent Bowel Pattern: Stool Characteristics: Nutritional Diagnosis Nutritional Risk Acuity 2: Chronic Renal Failure Past Medical History: Hx of Melanoma, GERD, chronic renal failure (stage 3) Nutritional Acuity: 2-Moderate Nutrition Diagnosis: Increased Nutrient Needs Nutrition Etiology: Low Protein Food Intake Nutrition Problem/Etiology/Sym: Increased nutirient needs, as related to low protein food intake, as related to chronic renal failure stage 3. Energy Requirement: 1889 ([place] AF- 1.3) Protein Requirement: 60 (.8g/kg) Fluid Requirement: 1900 (25ml/kg) Diet Type: Diet as Tolerated REJI/REG Nutrition Intervention: Cont diet as ordered, Encourage intake Nutrition Monitoring & Eval RD Patient Assessment Time: [address] Assessment Type: RD Screen Patient Nutrition Acuity: 2-Moderate Follow Up Date: Jun 12, 2018 Nutritional Comment: 06/08. Pt admitted for aspiration pneumonia. Pt aspirated on reflux and presented to hospital with uncontrollable chills/shivers. Pt noted this has happened before. Pt is on REJI, no meals available to report on. Pt has hx of chronic renal failure stage 3. Notable labs include: elevated BUN 29, creatinine 1.4 and random BG 132. Pt has a stated weight of 169lbs and overweight BMI of 25.7. Recommend 1889 kcal and 60g protein each day. Will monitor intake. DILLAN GARZA Jun 08, 2018 09:49
[2018-06-11] MEDS: ACETAMINOPHEN 500 MG TAB PO PRN (11:26)
--- NOTE | 2018-06-11 14:11 | Medical Nutrition Therapy ---
Nutrition Anthropometrics Height (Inches): 68.00 Height (Calculated Centimeters: [phone] Weight (Pounds): 169 Weight (Calculated Kilograms): 76.657 BMI: 25.7 Michael Nutrition Score: Adequate Michael Nutrition Risk Score: 20 Dietary Referral Nutrition Risk Factors: Nutrition Risk Comment: Physical Findings Physical Appearance: Overweight BMI 25-29 Skin Appearance Skin Appearance: Edema Edema Location Modifier: Edema Location: Type of Edema: Degree of Edema: Gastrointestinal Symptoms GI Symtoms: Appetite Changes Tube Present: Bowel Sounds: Recent Bowel Pattern: Stool Characteristics: Nutritional Diagnosis Nutritional Risk Acuity 2: Chronic Renal Failure Past Medical History: Hx of Melanoma, GERD, chronic renal failure (stage 3) Nutritional Acuity: 2-Moderate Nutrition Diagnosis: Increased Nutrient Needs Nutrition Etiology: Low Protein Food Intake Nutrition Problem/Etiology/Sym: Increased nutirient needs, as related to low protein food intake, as related to chronic renal failure stage 3. Energy Requirement: 1889 ([place] AF- 1.3) Protein Requirement: 60 (.8g/kg) Fluid Requirement: 1900 (25ml/kg) Diet Type: Diet as Tolerated REJI/REG Nutrition Intervention: Cont diet as ordered, Encourage intake Nutrition Monitoring & Eval RD Patient Assessment Time: [address] Assessment Type: RD Re-Assessment Patient Nutrition Acuity: 2-Moderate Follow Up Date: Jun 12, 2018 Nutritional Comment: 06/08. Pt admitted for aspiration pneumonia. Pt aspirated on reflux and presented to hospital with uncontrollable chills/shivers. Pt noted this has happened before. Pt is on REJI, no meals available to report on. Pt has hx of chronic renal failure stage 3. Notable labs include: elevated BUN 29, creatinine 1.4 and random BG 132. Pt has a stated weight of 169lbs and overweight BMI of 25.7. Recommend 1889 kcal and 60g protein each day. Will monitor intake. MR 06/11. Pt cont on REJI, consuming 50-100% of small and regular sized meals. Pt completed swallowing evaluation. No significant finding, no dysphagia present. It was recommended pt cont on reg diet, thin liquids, and avoids any problematic foods. Most recent labs suggest: low sodium 133, calcium 7.7, total protein 4.8, and albumin 2.5. Random BG is slightly elevated at 120. Will cont to monitor. DILLAN GARZA Jun 11, 2018 10:46
[2018-06-11] MEDS ORDERED: AMOX1TAB9 PO (14:33)
--- NOTE | 2018-06-11 14:42 | Hospitalist Depart ---
Discharge Summary Reason for Hosp/Final Diag: (1) Aspiration pneumonia Status: Acute Hospital Course & Plan: He presented after aspirating refluxed stomach contents. He had shaking chills, tachypnea, hypoxia and tachycardia. His chest x-ray did show findings consistent with aspiration pneumonia. He was started on treatment with IV Unasyn, but has now been converted to oral Augmentin. His cultures have been negative, discharged with Augmentin (2) GERD (gastroesophageal reflux disease) Status: Chronic Hospital Course & Plan: He is on chronic treatment with omeprazole and ranitidine. We have also been treating him with Protonix. This appears to be severe and the reason for his aspiration. Speech therapy has ordered an esophagram, which is scheduled outpatient 06.12.2018. (3) CKD (chronic kidney disease) stage 3, GFR 30-59 ml/min Status: Chronic Hospital Course & Plan: Baseline creatinine appears to be 1.3. (4) Sleep related leg cramps Status: Chronic Hospital Course & Plan: He has been on chronic clonazepam. Departure Weight (Pounds): 169 Weight (Ounces): 5.0 Result Diagram: 06/10/1854106/10/18541 Condition: Improved Discharge: Home Discharge Instructions Home Meds Active Scripts Amoxicillin/Potassium Clav (AMOX TR-K CLV 875-125 MG TAB) 1 Each Tablet, 875 MG PO BIDBS for 4 Days, #9 TAB Prov:SP GUZMAN 06/11/18 Lactobacillus Acidophilus (ACIDOPHILUS CAPLET) 1 Each Tab, 1 EACH PO BIDBS, #0 TAB continue for one week after stopping the antibiotic Prov:DEUCE LEHMAN MD 04/20/16 Clonazepam (CLONAZEPAM) 0.5 Mg Tablet, 1 TAB PO QHS PRN for insomnia, #0 TAB 1 Refill Prov:DEUCE LEHMAN MD 04/20/16 Omeprazole (OMEPRAZOLE) 20 Mg Tablet., 1 TAB PO BID, #180 TAB 3 Refills TAKE ONE TABLET BY MOUTH TWICE A DAY Prov:DIANE PONCE MD 09/28/14 Reported Medications Ranitidine Hcl (ZANTAC) 150 Mg Tablet, 75 MG PO HS, TAB 06/08/18 Cyanocobalamin (Vitamin B-12) (B-12) 500 Mcg Tablet, 500 MCG PO QPM, TAB 04/18/16 Acetaminophen (TYLENOL) 325 Mg Tablet, 650 MG PO PRN, TAB 04/18/16 Aspirin (ASPIRIN) 325 Mg Tablet, 325 MG PO QAM, TAB 04/18/16 Magnesium Oxide (MAGNESIUM) 250 Mg Tablet, 250 MG PO QPM 04/18/16 Docusate Sodium (COLACE) 100 Mg Capsule, PO QPM, CAPSULE 04/18/16 Calcium Polycarbophil (FIBERCON) 625 Mg Tablet, PO QAM 04/18/16 Potassium Gluconate (POTASSIUM GLUCONATE) 500 Mg Tablet, 1 TAB PO QHS 04/18/16 Ascorbic Acid (VITAMIN C) 500 Mg Tablet, 500 MG PO QAM, TAB 04/18/16 Multivitamin (MULTIVITAMINS) 1 Each Capsule, 1 EACH PO DAILY, CAPSULE 09/27/14 Discontinued Reported Medications Cholecalciferol (Vitamin D3) (VITAMIN D3) 400 Unit Capsule, 400 UNIT PO QPM, CAPSULE 04/18/16 Discontinued Scripts Cefdinir 300 Mg Cap (OMNICEF 300 MG CAP (OR EQUIV)) 300 Mg Capsule, 300 MG PO BID, #16 CAPSULE Start in the morning of 04/21 Prov:DEUEC LEHMAN MD 04/20/16 Diet: Regular Copies to: SOM BERGERON DO ; Venous Thromboembolism Antithrombotics Is Pt On Any Antithrombotics?: No Problem Qualifiers (1) Aspiration pneumonia: Aspiration pneumonia type: unspecified Laterality: right Lung location: middle lobe of lung Qualified Codes: J69.0 - Pneumonitis due to inhalation of food and vomit SP GUZMAN DO Jun 11, 2018 14:42
== END 2018-06-11 15:15 | disposition home or self-care (01) | DRG 179 ==
LOC: ER 01:51 → MED 03:25
PROVIDERS: ADMIT Internal Medicine; ATTEND Internal Medicine
DX: J69.0 Pneumonitis due to inhalation of food and vomit (principal); K21.9 Gastro-esophageal reflux disease without esophagitis; G47.62 Sleep related leg cramps; N52.9 Male erectile dysfunction, unspecified; N18.3 Chronic kidney disease, stage 3 (moderate); R09.02 Hypoxemia; R00.0 Tachycardia, unspecified; Z87.891 Personal history of nicotine dependence; Z85.820 Personal history of malignant melanoma of skin; Z92.21 Personal history of antineoplastic chemotherapy; Z23 Encounter for immunization
CPT/HCPCS: 36415; 71045; 74220; 81001; 82040; 82247; 82310; 82374; 82435; 82565; 82947; 83605; 83690; 84075; 84132; 84155; 84295; 84450; 84460; 84484; 84520; 85025; 85610; 85730; 87040; 87088; 90471; 90674; 93005; 94640; 94667; 94668; 96361; 96365; 99284; J0295; J1650; J2280; J7030; J7050; J7120

== ENCOUNTER → 2018-06-12 | Outpatient (CLI) | payer MEDICARE, OTHER ==
[2018-06-08 09:21] VITALS: BMI 25.7
[~2018-06-12] MED LIST changes: +AMOX1TAB9 PO; +BARIUM SULFATE 148 GM POWDER ONE; +BARIUM SULFATE 240 ML ORAL SUS (NECTAR) ONE; +RANI-366 PO
--- NOTE | 2018-06-12 13:06 | RADIOLOGY IMAGING REPORT ---
FACILITY: [facility] PATIENT NAME: Rosita Awad : 1935 MR: [id number] V: [id number] EXAM DATE: ORDERING PHYSICIAN: ROSITA JIANG TECHNOLOGIST: Location: [facility] [place] Patient: Rosiat Awad : 1935 Visit/Account:[id number] Date of Sevice: 06/12/2018 Exam type: ESOPH VIDEO SWALLOWING History: Aspiration on previous esophagram Comparison: Esophagram June 10, 2018. Findings: The video esophagram was performed by the speech pathologist. Fluoroscopic assistance was provided Patient received thin and nectar thick barium. Solids, soft solids and regular solids and mixed cons istencies. There is moderate pharyngeal dysphasia mild to moderate laryngeal penetration mild aspira tion and possible esophageal dysphasia. Please see speech pathologist report for complete details. The fluoroscopy dose area product was 136.14 micro-Patton per meter squared IMPRESSION: 1. As above Report Dictated By: Sayda Jones MD at 06/12/2018 1:01 PM Report E-Signed By: Sayda Jones MD at 06/12/2018 1:03 PM WSN:[email or web address]
--- NOTE | 2018-06-12 13:08 | SLP MODIFIED BARIUM SWALLOW ---
Speech Language Pathology Modified Barium Swallow Evaluation Report Date of Evaluation: 06/12/2018 Patient Name: Marco Awad Patient : [birth year] Clinician: Christina Nielson M.S., [facility]-CARD SELLER BACKGROUND The patient is an 82yo male who presented to the ED on 06/08/18 after an aspiration event while in bed. He reported refluxing a bunch of food into his mouth followed by coughing with subsequent development of shaking and chills and diagnosis of aspiration pneumonia. This was his fifth episode. He is currently seeing a laborer egg producing farm at [facility] in [place]. An ST evaluation was ordered while hospitalized to analyze oropharyngeal swallow structure and function and determine safety for PO intake. No evidence of oropharyngeal dysphagia, and no overt signs or symptoms of aspiration were noted at the bedside. However, the pts medical history and case presentation appeared consistent with potential esophageal dysphagia. A GI consult was recommended, and the pt was found to have an impression on the posterior wall of the cervical esophagus likely related to the cricopharyngeus muscle. There [was] a small hiatal hernia with a large amount of gastroesophageal reflux. There [was] a mild narrowing at the lower esophageal sphincter. The pt did aspirate a small amount of barium during the examination which entered the trachea and right main bronchus. This did not elicit a cough response. The pt was ultimately discharged from the hospital; however, a modified barium swallow study was ordered in the outpatient setting. Oxygen Supplementation: 1.0L via NC, portable tank. Level of Consciousness: non-altered Cognition: WFL Language: WFL Speech: WFL Voice: WFL. Non-verbal Oral Structure and Function: WFL Pain with Swallow: denies Current Diet: regular, thin liquids MODIFIED BARIUM SWALLOW In conjunction with radiology, lateral view with trials of the following consistencies: single and consecutive cup sips of thin and nectar thick liquids, pureed solids, mechanically soft solids, mixed consistencies, and regular solids. * Indicates impairment ORAL PHASE WNL Lip Closure: complete labial seal, no anterior spillage. Tongue Control during Bolus Hold: adequate containment, no posterior spillage of material. Bolus preparation and mastication: timely, efficient, and complete. Bolus transport/Lingual motion: adequate stripping wave, timely propulsion. Oral Residue: trace amounts/lingual coating. WNL. PHARYNGEAL PHASE moderate impairments Initiation of Pharyngeal Swallow: bolus head varying from the base of the tongue to just beyond the level of the valleculae prior to pharyngeal swallow initiation. This is considered a normal variation. Soft palate elevation: complete velopharyngeal closure. *Hyo-laryngeal elevation/excursion: diminished anterior and somewhat diminished superior movement *Epiglottic inversion: decreased inversion with lack of approximation to arytenoid cartilage *Laryngeal Vestibule Closure (LVC): incomplete. Contrast noted in laryngeal vestibule. *Pharyngeal stripping wave: diminished waveform. *UES opening: obstruction of flow as material entered cervical esophagus. 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 *Tongue base retraction: reduced; large column of contrast between tongue base and posterior pharyngeal wall. *Pharyngeal residue: Residue collection on in valleculae (moderate), pyriform sinus (mild to moderate), and on posterior pharyngeal wall (mild to moderate) with all solid textures. Mild residue noted with liquids. ESOPHAGEAL STAGE *Esophageal Clearance: impaired. Stasis/residue observed in cervical esophagus. Also see esophagram report from 06/10. Patients oral phase is within normal limits (WNL) with adequate strength, range of motion, speed and coordination of all oral musculature for timely and complete mastication, appropriate bolus formation, good bolus control, and efficient anterior to posterior transit in oral cavity. Initiation of the pharyngeal swallow was variable, ranging from the base of the tongue to just beyond the apex of the epiglottis. This delay is considered a normal deviation in all populations. During pharyngeal swallow onset, the pts hyolaryngeal movement was diminished with subsequent reduction in epiglottic inversion and incomplete closure of the laryngeal vestibule. This resulted in penetration of single sips of thin liquids, nectar thick liquids, and pureed solids into the airway, above the level of the vocal folds during the swallow (PAS 2). This also resulted in trace, silent aspiration below the level of the vocal folds (PAS 8) with thin liquids via consecutive cup sip. The pts decreased tongue base retraction, diminished pharyngeal stripping waveform, and reduction in opening of the upper esophageal sphincter resulted in vallecular residue, pharyngeal wall residue, and residue in the pyriform sinuses. The residue increased in quantity with solid textures. The pt was unaware of residue despite observation of material often filling the vallecular space. Cued execution of double swallow and provision of liquid wash effectively cleared approximately 50% of material across attempts. No penetration or aspiration noted with soft or hard solid textures. Penetration/Aspiration Scale (PAS)*: Thin liquids (single sip), nectar thick liquids (single and consecutive sip), pureed solids, liquid component of mixed consistencies: Score of 2, contrast enters airway, remains above the vocal folds, and is ejected from airway. Thin liquids (consecutive cup sip): Score of 8, contrast enters airway, passes below the vocal folds, and is not detected with no attempts to eject form airway. All other consistencies: Score of 1, contrast does not enter airway. *(Georgek et al. 1996) SUMMARY and RECOMMENDATIONS Aspiration Risk: moderately elevated risk 2/2 delayed decreased base of tongue retraction, pharyngeal residue with lack of sensation, poor closure of the laryngeal vestibule, witnessed aspiration of thin liquids, known history of esophageal dysphagia/reflux, and history of respiratory compromise/pneumonia. The pt will benefit from intermittent supervision to ensure adherence to/recall of safe swallow strategies and diet modification recommendations. Recommended Diet: Regular Recommended Liquids: [place] thick liquids Recommended form of Medications: whole, one at a time, with applesauce/puree Compensatory Strategies: double swallow, small bites/sips, one bite/sip at a time, Referrals: Outpatient ST 2x/wk. Develop relationship with GI specialist Spoke at length with the pt and spouse following completion of MBSS. Discussed results, diet modification recommendations, compensatory strategies, and referrals. The pt chose not to consume nectar thick liquids in the short-term, but appeared agreeable to implementing compensatory swallow strategies, considering outpatient ST services and to consulting with a GI specialist. Verbal, visual, and written education was provided at time of evaluation. Thank you for this referral. Please call [phone] to contact the CARD SELLER. Christina Nielson M.S., [facility] SELLER Physician Signature Date \ [*] MTDD
== END ==
LOC: RAD 11:04
PROVIDERS: ATTEND Internal Medicine
DX: R13.13 Dysphagia, pharyngeal phase (principal)
CPT/HCPCS: 74230

== ENCOUNTER → 2019-01-28 | Outpatient (CLI) | payer MEDICARE, OTHER ==
[2018-06-08 09:21] VITALS: BMI 25.7
[~2019-01-28] MED LIST changes: -BARIUM SULFATE 148 GM POWDER ONE; -BARIUM SULFATE 240 ML ORAL SUS (NECTAR) ONE; +IOPAMIDOL 76% 150 ML INFUS BTL 150 ML ONE
--- NOTE | 2019-01-28 11:42 | RADIOLOGY IMAGING REPORT ---
FACILITY: [facility] PATIENT NAME: Marco Awad : 1935 MR: [id number] V: [id number] EXAM DATE: ORDERING PHYSICIAN: HORACIO GERMAN TECHNOLOGIST: Location: [facility] Patient: Marco Awad : 1935 Visit/Account:[id number] Date of Sevice: 01/28/2019 CT CHEST ABDOMEN PELVIS W/CON HISTORY: Melanoma ADDITIONAL HISTORY: None. TECHNIQUE: Following administration of IV contrast axial images acquired through the chest abdomen a nd pelvis during the portal venous phase. Coronal and sagittal reformatting was also performed.Dose Lowering Technique One of the following dose optimization techniques was utilized in the performance of this exam: Autom ated exposure control; adjustment of the mA and/or kV according to the patient's size; or use of an i terative reconstruction technique. Specific details can be referenced in the facility's radiology C T exam operational policy. CONTRAST: 75 mL Isovue-370 COMPARISON: February 06, 2018, January 06, 2017 FINDINGS: CHEST: Lungs/Pleura: There is a small amount of left apical scarring that appears unchanged. There are several tiny micronodules scattered throughout the right lung that have remained stable. A motor vehicle field representative nodule in the right lower lobe is best seen on image 301 of series 3 Mediastinum/lymph nodes: Negative. Heart/vessels: There are very mild atherosclerotic calcifications in the aortic arch and branch vess els including the coronary arteries Bones/soft tissues: There is a mild scoliosis of the thoracolumbar spine. No aggressive appearing b one lesions are seen ABDOMEN AND PELVIS: Hepatobiliary: Negative. Spleen: Negative. Pancreas: Negative. Adrenals: Negative. Kidneys ureters and bladder : Negative. Genitalia: Prostate gland is mildly enlarged containing coarse calcination occasions impinging upon t he floor the bladder GI: There is diverticulosis of the sigmoid colon although no CT evidence of acute diverticulitis Vessels/spaces/nodes: There moderate atherosclerotic calcifications in the abdominal aorta and branc h vessels Bones/soft tissues: No aggressive appearing bone lesions are seen Additional findings: None pertinent. IMPRESSION: There several tiny micronodules measuring up to 2 mm within the right lung as described above these h ave remained stable when compared to February 06, 2018 and may be stable when compared to January 06, 2017 a lthough direct comparison is difficult to the earlier study due to the difference in slice thickness. Additional chronic findings as described Report Dictated By: Sayda Jones MD at 01/28/2019 11:10 AM Report E-Signed By: Sayda Jones MD at 01/28/2019 11:37 AM WSN:[email or web address]
== END ==
LOC: CT 00:16
PROVIDERS: ATTEND Internal Medicine Medical Oncology
DX: C43.9 Malignant melanoma of skin, unspecified (principal)
CPT/HCPCS: 36415; 71260; 74177; 82565; Q9967